=== PATIENT | male | born 2000 | race Caucasian/White ===

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

== ENCOUNTER 2022-10-12 07:19 | Emergency (ER) | payer OTHER ==
[~2022-10-12] VITALS: Ht 182.9 cm; Wt 74.8 kg
[2022-10-12 07:51] VITALS: BP 124/80
[2022-10-12] MEDS ORDERED: IBUP600 PO (08:08)
== END 2022-10-12 08:30 | disposition home or self-care (01) ==
LOC: ER 07:19
DX: M54.9 Dorsalgia, unspecified (principal); X50.0XXA Overexertion from strenuous movement or load, initial encounter
CPT/HCPCS: 96372; 99283-25; J1885

== ENCOUNTER 2024-07-04 20:21 | Emergency (ER) | payer OTHER ==
[~2024-07-04] VITALS: Ht 182.9 cm; Wt 79.4 kg
[~2024-07-04 20:21] MED LIST changes: +IBUP600 PO
[2024-07-04 20:29] VITALS: BP 156/100
== END 2024-07-04 21:43 | disposition home or self-care (01) ==
LOC: ER 20:21
DX: M25.561 Pain in right knee (principal)
CPT/HCPCS: 73562-RT; 99283-25